=== PATIENT | female | born 1960 | race Caucasian/White ===

== ENCOUNTER 2024-06-19 12:55 | Emergency (ER) | payer MEDICARE, SELFPAY ==
[2024-06-19 13:03] VITALS: BP 139/72
--- NOTE | 2024-06-19 13:53 | EDRN ---
Segundo Garza PA in room w/pt at this time.
[2024-06-19 13:54] VITALS: BMI 22.5
--- NOTE | 2024-06-19 13:58 | ED.GENMED ---
History of Present Illness
General
Chief Complaint: Fall
Source: patient
Time Seen by Provider: 06/19/24 13:44
History of Present Illness
History of Present Illness:
64-year-old female with past medical history of asthma and GERD presenting to the ER at the request of [facility] urgent care for evaluation after head injury earlier this morning while walking her dog. Patient states her dog pulled her causing
the patient to twist and fall onto her lower back and striking her head on the ground. There is no reported loss consciousness, vomiting, visual changes but patient states had a mild headache which seem to be somewhat improved with some Advil prior
to arrival to the ER. Patient denies use of anticoagulants. Other than some mild lower back pain patient has no other concerns at this time.
Past History
Past History
ED Past Medical History: Asthma and GERD; Negative Arrthythmia, CAD, Cancer, CHF or COPD
ED Past Surgical History: Tonsilectomy; Negative Cardiac
Social History
Tobacco: Former smoker
Alcohol: None
Drug: None
Personal:
Living: with family
Employment: Employed
Family History
Family History: CAD
Review of Systems
Review of Systems
All Other Systems: ROS reviewed and negative except as documented in HPI and ROS
Phy Exam
Physical Exam
Physical Exam:
GENERAL: Alert , in no apparent distress
EYE: conjunctiva clear
Head: Normocephalic atraumatic
NECK: Supple, no midline tenderness
ENT: mmm.
LUNGS: no acute respiratory distress
NEUROLOGICAL: Alert and oriented
SKIN: Warm and dry, skin intact.
MUSCULOSKELETAL: well perfused.
PSYCH: Normal and appropriate interaction.
Scores
Heart Failure Risk
Heart Failure Risk Score: Not Applicable
Heart Score for Chest Pain Patients
STEMI patient?: Not applicable
Withdrawal Assessment of Alcohol
Withdrawal Assessment Completed?: Not applicable
Course
Orders/Labs/Results
Orders:
Orders
06/19/24 13:45
CT Head W/o Iv Contrast Urgent
Comment:
Reason For Exam: fall, head injury
06/19/24 15:33
Cyclobenzaprine HCl [Flexeril] 5 mg PO NOW STA
Vital Signs
Initial and Last Documented VS:
Initial Vital Signs
Temp Pulse Resp BP Pulse Ox
98.0 F 73 16 139/72 99
06/19/24 13:03 06/19/24 13:03 06/19/24 13:03 06/19/24 13:03 06/19/24 13:03
Last Documented Vital Signs
Temp Pulse Resp BP Pulse Ox
98.0 F 50 16 126/70 100
06/19/24 13:03 06/19/24 14:01 06/19/24 14:01 06/19/24 14:01 06/19/24 14:01
MDM/Problems Addressed
Differential Diagnosis Includes:
Contusion, concussion, I have minimal concern for intracranial bleeding, no concern for calvarial fracture
MDM/Problems Addressed:
64-year-old female presenting to the emergency department at request of urgent care for acute CT scan of the head following head injury when she fell walking her dog. Patient reports that she believes her back hit the ground first and then her head
onto the ground. Mild headache. Discussed risk versus benefit of CT imaging and patient would like to proceed with CT of the head. She is otherwise resting comfortably and hemodynamically/neurologically intact. Anticipate discharge home
following CT scan
*Radiology
Radiology exam reviewed: radiology read reviewed
*Pulse Oximetry
Patient hypoxic: no
*Critical Care Note
Total Time (30-74mins, 75-104mins- exclusive of procedures): Not Applicable
Patient Management
Escalation/DeEscalation of care consider admission/obs:
CT negative for any acute pathologies. Patient stable for discharge home. Aware of return precautions
ED Attending Note
-
Portions of this chart may have been created with voice recognition software.� Occasional wrong word or��sound alike� substitutions may have occurred due to the inherent limitations of voice recognition software.
Discharge Plan
Departure
Patient Disposition: Home (Routine Discharge)
Date of Disposition: 06/19/24
Time of Disposition: 15:35
Patient with high blood pressure during this ER visit?: No
Discharge Problem:
Accidental fall, Head injury
Instructions: Head Injury in Adults (DC)
Prescriptions:
New
cyclobenzaprine 5 mg tablet
5 mg PO BID PRN (Reason: muscle spasm) Qty: 10 0RF
No Action
aspirin [Adult Aspirin Regimen] 81 MG tablet,delayed release (DR/EC)
81 mg PO DAILY
famotidine [Pepcid AC] 20 MG tablet
20 mg PO DAILY
DULERA 100 MCG/5 MCG INHALER
1 puff inhalation DAILY
Referrals:
Jack Amaya MD [Family Provider] -
Interventions
Interventions:
*Risk Screen - Suicide Last Done: 06/19/24 13:54
*General Assessment Last Done: 06/19/24 13:03
*Neglect/Abuse Screening Last Done: 06/19/24 13:54
ED- Fall Risk Assessment Last Done: 06/19/24 13:54
*ED COVID-19 Vaccine History Last Done: 06/19/24 13:03
*Nursing Disposition Last Done: 06/19/24 16:05
ED-Musculoskeletal Assessment Last Done: 06/19/24 13:54
ED- Neurological Assessment Last Done: 06/19/24 13:54
ED-Skin Assessment Last Done: 06/19/24 13:54
Discharge Date and Time
Discharge Date/Time: 06/19/24 16:05
Print Language: [id number]
[2024-06-19 14:01] VITALS: BP 126/70
[2024-06-19] MEDS: FLEXERIL 5 MG PO (15:55)
== END 2024-06-19 16:05 | disposition home or self-care (01) ==
LOC: EMR 12:55
PROVIDERS: EMERGENCY PHYSICIAN Emergency Medicine; FAMILY PHYSICIAN Family Medicine
DX: S09.90XA Unspecified injury of head, initial encounter (principal); M54.59 Other low back pain; R51.9 Headache, unspecified; W19.XXXA Unspecified fall, initial encounter; Y93.K1 Activity, walking an animal; J45.909 Unspecified asthma, uncomplicated; K21.9 Gastro-esophageal reflux disease without esophagitis; Z87.891 Personal history of nicotine dependence; Z79.82 Long term (current) use of aspirin; Z88.0 Allergy status to penicillin
CPT/HCPCS: 99284; 70450